=== PATIENT | male | born 1990 | race Caucasian/White ===

== ENCOUNTER 2024-07-12 09:05 | Inpatient (IN) | payer MEDICAID ==
[~2024-07-12] VITALS: Ht 175.3 cm; Wt 80.4 kg
[2024-07-12] MEDS: ACETAMINOPHEN 1000MG/100ML 100 ML IV ONE (09:45)
[2024-07-12] MEDS: SODIUM CHLORIDE 0.9% (SEPSIS BOLUS) IV ONE (09:53)
[2024-07-12] MEDS: PIPERACILLIN/TAZO 3.375G/50ML 50 ML IV ONE (09:54)
[2024-07-12] MEDS: FAMOTIDINE 20MG/2ML VIAL IV STA (09:54)
[2024-07-12] MEDS: MORPHINE SULFATE 4 MG/ML INJ (FOR IV/IM USE) IV STA (09:54)
[2024-07-12] MEDS: ONDANSETRON HCL 4MG/2ML INJ IV STA (09:54)
[2024-07-12] MEDS: SODIUM CHLORIDE 0.9% 1,000 ML IV ONE (09:55)
[2024-07-12 10:05] LABS: HEMATOCRIT. 43.2 % (42.0-52.0); HEMOGLOBIN. 14.7 g/dL (14.0-18.0); MEAN CORPUSCULAR HEMOGLOBIN 31.8 pg (28.0-32.0); MEAN CORPUSCULAR HGB CONC 33.9 g/dL (31.0-37.0); MEAN CORPUSCULAR VOLUME 93.8 fL (80.0-94.0); MEAN PLATELET VOLUME 9.3 fl (7.4-10.4); PLATELET 166 x1000/uL (130-400); RED BLOOD CELL COUNT 4.61 mill/uL (4.7-6.1); RED CELL DISTRIBUTION WIDTH 13.7 % (11.6-14.6); WHITE BLOOD COUNT 9.8 x1000/uL (4.5-11.0)
[2024-07-12 10:09] LABS: DIFFERENTIAL COMMENT 1
[2024-07-12 10:13] LABS: CHLORIDE 97 mEq/L (98-107); POTASSIUM 3.3 mEq/L (3.5-5.1); SODIUM 139 mEq/L (136-145)
[2024-07-12 10:14] LABS: CALCIUM 10.1 mg/dL (8.7-10.4); CARBON DIOXIDE 27 mEq/L (21-32)
[2024-07-12 10:19] LABS: GLUCOSE 161 mg/dL (70-105); UREA NITROGEN BLOOD 9 mg/dL (9-23)
[2024-07-12 10:20] LABS: LACTIC ACID 2.1 mmol/L (0.4-2.0)
[2024-07-12 10:23] LABS: ALANINE AMINOTRANSFERASE 342 IU/L (10-49); ALBUMIN 4.4 g/dL (3.2-4.8); ASPARTATE AMINOTRANSFERASE > 1000 IU/L (<34); BILIRUBIN DIRECT 3.6 mg/dL (<=3.0); BILIRUBIN TOTAL 5.7 mg/dL (0.1-1.0); PROTEIN TOTAL 7.8 g/dL (6.0-8.3)
[2024-07-12] MEDS: VANCOMYCIN 1G PREMIX 200 ML IV ONE (10:59)
[2024-07-12 11:46] LABS: PROTHROMBIN TIME 10.9 sec (9.6-11.0)
[2024-07-12 12:46] LABS: PLATELET ESTIMATE NORMAL
[2024-07-12 13:22] LABS: CLARITY URINE CLEAR (CLEAR); COLOR URINE DARK YELLOW (YELLOW); GLUCOSE URINE NEGATIVE (NEGATIVE); KETONES URINE 4+ (NEGATIVE); LEUKOCYTE ESTERASE URINE TRACE (NEGATIVE); NITRITE URINE NEGATIVE (NEGATIVE); OCCULT BLOOD URINE NEGATIVE (NEGATIVE); PROTEIN URINE 1+ (NEGATIVE); SPECIFIC GRAVITY URINE 1.036 (1.005-1.030)
[2024-07-12 13:42] LABS: BACTERIA URINE 1+; RBC URINE 0-2 /hpf (0-2); SQUAMOUS EPITHELIAL CELL URINE NONE SEEN /lpf (RARE/1+); YEAST URINE NONE SEEN
[2024-07-12] MEDS ORDERED: PANTOPRAZOLE SODIUM 40 MG/VIAL IV SCH (13:45)
[2024-07-12] MEDS ORDERED: HYDRALAZINE 20MG/ML VIAL IV PRN ×2 (13:45→14:15)
[2024-07-12] MEDS ORDERED: GUAIFENESIN 200MG/10ML SUGAR FREE UDC PO PRN ×2 (13:45→14:15)
[2024-07-12] MEDS ORDERED: MAGNESIUM/ALUMINUM HYDROXIDE/SIMETHICONE 30ML UDC PO PRN ×2 (13:45→14:15)
[2024-07-12] MEDS ORDERED: ONDANSETRON HCL 4MG/2ML INJ IV PRN ×2 (13:45→14:15)
[2024-07-12] MEDS ORDERED: LORAZEPAM 1MG TABLET PO PRN ×2 (13:45→14:15)
[2024-07-12] MEDS ORDERED: LORAZEPAM 2MG/ML INJ IV PRN ×2 (13:45→14:15)
[2024-07-12] MEDS ORDERED: MELATONIN 3MG TABLET PO PRN ×2 (13:45→14:15)
[2024-07-12] MEDS ORDERED: DOCUSATE SODIUM 100MG CAPSULE PO PRN ×2 (13:45→14:15)
[2024-07-12] MEDS ORDERED: IPRATROPIUM/ALBUTEROL 0.5-3(2.5)MG/3ML NEB HHN PRN ×2 (13:45→14:15)
[2024-07-12] MEDS ORDERED: SODIUM CHLORIDE 0.9% 1,000 ML IV SCH (13:45)
[2024-07-12] MEDS ORDERED: DEXTROSE 50% WATER 50ML SYRINGE IV PRN ×2 (13:45→14:15)
[2024-07-12] MEDS ORDERED: ACETAMINOPHEN 325MG TABLET PO PRN (13:45)
[2024-07-12 14:00] VITALS: BP 124/84; PULSE 120; RESP 18; TEMP 37.8
[2024-07-12] MEDS ORDERED: PIPERACILLIN/TAZO 3.375G/50ML 50 ML IV SCH (14:00)
[2024-07-12 14:15] VITALS: BP 124/84; PULSE 120; RESP 20; TEMP 37.8; O2SAT 97
[2024-07-12 14:27] VITALS: BP 124/84; PULSE 120; RESP 20; TEMP 37.8
[2024-07-12 15:18] LABS: ACETAMINOPHEN 4 ug/mL (10-30); PHOSPHORUS 2.3 mg/dL (2.5-4.9)
[2024-07-12 15:25] LABS: T4 FREE 1.39 ng/dL (0.89-1.76)
[2024-07-12 15:54] LABS: HEPATITIS B SURFACE ANTIGEN NEGATIVE (Negative)
[2024-07-12 16:10] VITALS: BP 120/36; RESP 18; TEMP 37; O2SAT 100
[2024-07-12 16:15] LABS: HEPATITIS A AB IGM NEGATIVE (Negative)
[2024-07-12 16:16] LABS: HEPATITIS B CORE AB IGM NEGATIVE (Negative); HEPATITIS C AB NON REACTIVE (Neg) (Negative)
[2024-07-12] MEDS: SODIUM CHLORIDE 0.9% 1,000 ML IV SCH (16:23)
[2024-07-12] MEDS: POTASSIUM CHLORIDE 20MEQ/PACKET PO NR (16:23)
[2024-07-12] MEDS: PANTOPRAZOLE SODIUM 40 MG/VIAL IV SCH (16:28)
[2024-07-12] MEDS: PIPERACILLIN/TAZO 3.375G/50ML 50 ML IV SCH (16:29)
[2024-07-12] MEDS: VANCOMYCIN 750MG/150ML (BAXTER) IV NR (16:29)
[2024-07-12] MEDS: ACETAMINOPHEN 325MG TABLET PO PRN (16:37)
[2024-07-12] MEDS: INSULIN LISPRO 100 UNITS/ML SUBCUT SCH (16:43)
[2024-07-12] MEDS: BLOOD SUGAR DIAGNOSTIC STRIP TEST SCH (16:43)
[2024-07-12] MEDS ORDERED: BLOOD SUGAR DIAGNOSTIC STRIP TEST SCH (17:00)
[2024-07-12] MEDS: POTASSIUM-SODIUM PHOSPHATE POWDER PACKET PO NR (18:19)
[2024-07-12] MEDS ORDERED: INSULIN LISPRO 100 UNITS/ML SUBCUT SCH (18:20)
[2024-07-12 20:00] VITALS: BP 139/90; PULSE 97; RESP 19; TEMP 36.8; O2SAT 97
[2024-07-12] MEDS: MAGNESIUM 4 G PREMIX 100 ML IV NR (23:01)
[2024-07-12] MEDS: KCL 10MEQ/50ML PREMIX 100 ML IV SCH (23:02)
[2024-07-13] VITALS: BP 131/79; PULSE 70; RESP 18; TEMP 37; O2SAT 97
[2024-07-13 00:46] LABS: POTASSIUM 4.1 mEq/L (3.5-5.1)
[2024-07-13 04:00] VITALS: BP 130/87; PULSE 90; RESP 18; TEMP 36.9; O2SAT 98
[2024-07-13] MEDS: VANCOMYCIN 750MG/150ML (BAXTER) IV SCH (05:46)
[2024-07-13 07:14] LABS: HEMATOCRIT. 37.1 % (42.0-52.0); HEMOGLOBIN. 12.4 g/dL (14.0-18.0); MEAN CORPUSCULAR HEMOGLOBIN 31.2 pg (28.0-32.0); MEAN CORPUSCULAR HGB CONC 33.4 g/dL (31.0-37.0); MEAN CORPUSCULAR VOLUME 93.6 fL (80.0-94.0); MEAN PLATELET VOLUME 10.1 fl (7.4-10.4); PLATELET 132 x1000/uL (130-400); RED BLOOD CELL COUNT 3.97 mill/uL (4.7-6.1); RED CELL DISTRIBUTION WIDTH 13.6 % (11.6-14.6); WHITE BLOOD COUNT 5.2 x1000/uL (4.5-11.0)
[2024-07-13 07:14] LABS: CHLORIDE 102 mEq/L (98-107); POTASSIUM 3.4 mEq/L (3.5-5.1); SODIUM 135 mEq/L (136-145)
[2024-07-13 07:15] LABS: CALCIUM 8.5 mg/dL (8.7-10.4); CARBON DIOXIDE 24 mEq/L (21-32)
[2024-07-13 07:19] LABS: ALANINE AMINOTRANSFERASE 225 IU/L (10-49)
[2024-07-13 07:20] LABS: CREATININE 0.7 mg/dL (0.6-1.3); GLUCOSE 104 mg/dL (70-105); UREA NITROGEN BLOOD 8 mg/dL (9-23)
[2024-07-13 07:22] LABS: ALBUMIN 3.3 g/dL (3.2-4.8); ASPARTATE AMINOTRANSFERASE 343 IU/L (<34); BILIRUBIN TOTAL 5.5 mg/dL (0.1-1.0); PROTEIN TOTAL 5.9 g/dL (6.0-8.3)
[2024-07-13 07:28] LABS: DIFFERENTIAL COMMENT 1
[2024-07-13 08:00] VITALS: BP 118/82; PULSE 94; RESP 18; TEMP 38.2; O2SAT 97
[2024-07-13 12:00] VITALS: BP 147/87; PULSE 107; RESP 18; TEMP 37.6; O2SAT 97
[2024-07-13 12:01] LABS: *AMPHETAMINES SCREEN URINE NEGATIVE (NEGATIVE); *BARBITURATES SCREEN URINE NEGATIVE (NEGATIVE); *BENZODIAZEPINES SCREEN URINE NEGATIVE (NEGATIVE); *COCAINE SCREEN URINE NEGATIVE (NEGATIVE); CANNABINOID URINE SCREEN NEGATIVE (NEGATIVE); ECSTASY MDMA SCREEN URINE NEGATIVE (NEGATIVE); METHADONE URINE SCREEN NEGATIVE (NEGATIVE); OPIATES URINE SCREEN PRESUMPTIVE POSITIVE (NEGATIVE); PHENCYCLIDINE URINE SCREEN NEGATIVE (NEGATIVE)
[2024-07-13] MEDS: POTASSIUM CHLORIDE 20MEQ TABLET SR PO SCH (12:17)
[2024-07-13] MEDS: PIPERACILLIN/TAZO 3.375G/50ML 50 ML IV SCH (13:21)
[2024-07-13 16:00] VITALS: BP 140/89; PULSE 105; RESP 18; TEMP 37.1; O2SAT 97
[2024-07-13 20:00] VITALS: BP 136/76; PULSE 98; RESP 20; TEMP 36.6; O2SAT 98
[2024-07-14] VITALS: BP 127/81; PULSE 95; RESP 18; TEMP 37.1; O2SAT 98
[2024-07-14 04:00] VITALS: BP 131/72; PULSE 96; RESP 16; TEMP 36.8; O2SAT 99
[2024-07-14 08:00] VITALS: BP 140/102; PULSE 98; RESP 18; TEMP 37.2; O2SAT 100
[2024-07-14] MEDS: THIAMINE HCL 100MG TABLET PO SCH (08:22)
[2024-07-14] MEDS: FOLIC ACID 1MG TABLET PO SCH (08:22)
[2024-07-14 08:31] LABS: HEMATOCRIT 37.6 % (42.0-52.0); HEMOGLOBIN 12.4 g/dL (14.0-18.0); MEAN CORPUSCULAR HEMOGLOBIN 30.8 pg (28.0-32.0); MEAN CORPUSCULAR HGB CONC 32.9 g/dL (31.0-37.0); MEAN CORPUSCULAR VOLUME 93.5 fL (80.0-94.0); PLATELET 134 x1000/uL (130-400); RED BLOOD CELL COUNT 4.02 mill/uL (4.7-6.1); RED CELL DISTRIBUTION WIDTH 13.6 % (11.6-14.6); WHITE BLOOD COUNT 4.4 x1000/uL (4.5-11.0)
[2024-07-14 08:40] LABS: CHLORIDE 103 mEq/L (98-107); POTASSIUM 3.6 mEq/L (3.5-5.1); SODIUM 135 mEq/L (136-145)
[2024-07-14 08:43] LABS: CALCIUM 8.8 mg/dL (8.7-10.4); CARBON DIOXIDE 22 mEq/L (21-32)
[2024-07-14 08:48] LABS: CREATININE 0.6 mg/dL (0.6-1.3); GLUCOSE 105 mg/dL (70-105); UREA NITROGEN BLOOD 5 mg/dL (9-23)
[2024-07-14 08:50] LABS: ALANINE AMINOTRANSFERASE 179 IU/L (10-49); ALBUMIN 3.3 g/dL (3.2-4.8); ASPARTATE AMINOTRANSFERASE 212 IU/L (<34); BILIRUBIN TOTAL 4.7 mg/dL (0.1-1.0); PROTEIN TOTAL 6.1 g/dL (6.0-8.3)
[2024-07-14] MEDS: MAGNESIUM 2 G PREMIX 50 ML IV NR (11:39)
[2024-07-14 12:00] VITALS: BP 127/91; PULSE 98; RESP 18; TEMP 37.8; O2SAT 100
[2024-07-14 14:01] VITALS: BP 127/91; PULSE 98; TEMP 100; O2SAT 100
[2024-07-15 00:01] LABS: PLATELET ESTIMATE NORMAL
== END 2024-07-14 15:45 | disposition home or self-care (01) | DRG 720 ==
LOC: ER 09:05 → EDBEDREQ 10:37 → 8WST 12:09 → EDBEDREQTM 12:11 → EDBEDREQ 12:11 → ER 14:07
PROVIDERS: ADMIT Hospitalist; ATTEND Hospitalist
DX: A41.9 Sepsis, unspecified organism (principal); E87.20 Acidosis, unspecified; K70.9 Alcoholic liver disease, unspecified; K92.0 Hematemesis; E87.6 Hypokalemia; K80.20 Calculus of gallbladder without cholecystitis without obstruction; E83.42 Hypomagnesemia; F10.20 Alcohol dependence, uncomplicated; K21.9 Gastro-esophageal reflux disease without esophagitis; Y90.9 Presence of alcohol in blood, level not specified; I82.521 Chronic embolism and thrombosis of right iliac vein; K76.0 Fatty (change of) liver, not elsewhere classified; N39.0 Urinary tract infection, site not specified; R65.20 Severe sepsis without septic shock; R79.89 Other specified abnormal findings of blood chemistry; R16.1 Splenomegaly, not elsewhere classified; Z87.891 Personal history of nicotine dependence; A09 Infectious gastroenteritis and colitis, unspecified
CPT/HCPCS: 36415; 71045; 74176; 76700; 80048; 80053; 80076; 80202; 80305; 80307; 80320; 81003; 82962; 83036; 83520; 83605; 83735; 84100; 84132; 84145; 84439; 85025; 85027; 86705; 86709; 87015; 87045; 87340; 87427; 87449; 89055; 93005; 99291; A4606; J2270; J2405; J2470; J2543; J3370; J3475; J3480; J3490; J7030; G0480; J0131

== ENCOUNTER 2024-07-15 15:07 | Emergency (ER) | payer MEDICAID ==
[~2024-07-15] VITALS: Ht 175.3 cm; Wt 79.3 kg
[2024-07-15 15:17] VITALS: O2SAT 97
[2024-07-15 15:56] LABS: HEMATOCRIT. 44.6 % (42.0-52.0); HEMOGLOBIN. 14.7 g/dL (14.0-18.0); MEAN CORPUSCULAR HEMOGLOBIN 30.7 pg (28.0-32.0); MEAN CORPUSCULAR HGB CONC 33.1 g/dL (31.0-37.0); MEAN PLATELET VOLUME 9.3 fl (7.4-10.4); PLATELET 177 x1000/uL (130-400); RED BLOOD CELL COUNT 4.79 mill/uL (4.7-6.1); RED CELL DISTRIBUTION WIDTH 13.8 % (11.6-14.6); WHITE BLOOD COUNT 6.5 x1000/uL (4.5-11.0)
[2024-07-15 15:57] LABS: DIFFERENTIAL COMMENT 1
[2024-07-15 15:58] LABS: CHLORIDE 99 mEq/L (98-107); POTASSIUM 3.8 mEq/L (3.5-5.1); SODIUM 134 mEq/L (136-145)
[2024-07-15 15:59] LABS: CARBON DIOXIDE 25 mEq/L (21-32)
[2024-07-15 16:00] LABS: CALCIUM 9.9 mg/dL (8.7-10.4)
[2024-07-15 16:04] LABS: CREATININE 0.7 mg/dL (0.6-1.3); GLUCOSE 93 mg/dL (70-105); UREA NITROGEN BLOOD 8 mg/dL (9-23)
[2024-07-15 16:16] LABS: PLATELET ESTIMATE NORMAL
[2024-07-15] MEDS ORDERED: MORPHINE SULFATE 4 MG/ML INJ (FOR IV/IM USE) IV ONE (21:00)
[2024-07-15] MEDS ORDERED: ONDANSETRON HCL 4MG/2ML INJ IV ONE (21:00)
[2024-07-15] MEDS: SODIUM CHLORIDE 0.9% 1,000 ML IV ONE (22:16)
[2024-07-15] MEDS: ONDANSETRON 4MG ODT PO ONE (22:25)
[2024-07-15] MEDS: HYDROCODONE/ACETAMINOPHEN 7.5/325MG TABLET PO ONE (22:36)
[2024-07-15] MEDS: ONDANSETRON HCL 4MG/2ML INJ IV NR (22:40)
[2024-07-15] MEDS: MORPHINE SULFATE 4 MG/ML INJ (FOR IV/IM USE) IV NR (22:41)
[2024-07-16] MEDS ORDERED: HYDR-4001 MT (01:17)
[2024-07-16] MEDS ORDERED: ONDA4TAB50 MT (01:17)
[2024-07-16] MEDS ORDERED: IBUP-1525 MT (01:17)
[2024-07-16 01:33] VITALS: BP 134/84; PULSE 90; RESP 18; TEMP 37.1; O2SAT 98
[2024-07-16 01:47] LABS: CLARITY URINE CLEAR (CLEAR); COLOR URINE DARK YELLOW (YELLOW); GLUCOSE URINE NEGATIVE (NEGATIVE); KETONES URINE 4+ (NEGATIVE); LEUKOCYTE ESTERASE URINE NEGATIVE (NEGATIVE); NITRITE URINE NEGATIVE (NEGATIVE); OCCULT BLOOD URINE NEGATIVE (NEGATIVE); PROTEIN URINE 1+ (NEGATIVE); SPECIFIC GRAVITY URINE 1.025 (1.005-1.030)
[2024-07-16 05:19] LABS: SQUAMOUS EPITHELIAL CELL URINE FEW /lpf (RARE/1+)
[2024-07-16 05:23] LABS: BACTERIA URINE NONE SEEN; RBC URINE 0-2 /hpf (0-2); WBC URINE 0-2 /hpf (0-2)
== END 2024-07-16 01:35 | disposition home or self-care (01) ==
LOC: ER 15:07
DX: R10.11 Right upper quadrant pain (principal)
CPT/HCPCS: 80048; 83690; 85025; 36415; 76705; 96361; 96374; 96375; 99285; 81003; J2405; J2270; J7030; Z7610